=== PATIENT | female | born 1990 | race Caucasian/White ===

== ENCOUNTER 2017-03-05 07:02 | Emergency (ER) | payer OTHER ==
[2017-03-05 07:24] LABS: COLOR PALE YELLOW; LEUKOCYTE ESTERASE,URINE 1+ (NEGATIVE); NITRITE,URINE NEGATIVE (NEGATIVE)
[2017-03-05 07:25] LABS: WBC,URINE 15-25 /hpf (0-3)
[2017-03-05] MEDS ORDERED: CEPHALEXIN 500 MG CAP PO ONE (07:41)
--- NOTE | 2017-03-05 07:45 | EDPHY ---
H & P Time Seen by Provider: 03/05/17 07:04 HPI/ROS: HPI Urinary complaints. 26-year-old female by private vehicle. She complains of some burning with urination and increased frequency with urination, onset this morning. No gross hematuria. Denies any back pain. No nausea or vomiting. No fever. ROS: Constitutional: No fever, no chills. No weakness. Respiratory: No cough. No shortness of breath. Cardiac: No chest pain, no palpitations. Gastrointestinal: No abdominal pain, no vomiting, no diarrhea. Genitourinary: No hematuria. As above. Musculoskeletal: No back pain. No neck pain. No myalgias or arthralgias. Skin: No rashes. Neurological: No headache. No focal weakness or altered sensation. Past medical history: None. Social history: Here by herself. Nonsmoker. Physical Exam: General Appearance: Alert, no distress. This patient is responding to questions appropriately and in full sentences. This patient appears well- hydrated and well-nourished. Eyes: Pupils equal and round no pallor or injection. No lid edema, erythema or injection. Gastrointestinal: Abdomen is soft and nontender, no masses, bowel sounds normal. No focal tenderness at McBurney's point. No Marin sign. Neurological: Motor sensory function is grossly intact. Cranial nerves are normal. Gait is normal. Skin: Warm and dry, no rashes. Musculoskeletal: No CVA tenderness bilaterally. Extremities are symmetrical. All joints range without pain or impingement. Psychiatric: No agitation. No depression. Database: EKG: Imaging: Procedures: Emergency department course: Urinalysis indicates a possible early infection. Plan will be to treat her with a 5 day course of Keflex. She was given 500 mg of Keflex orally in the emergency department. She has no known medication allergies. She is in agreement with this plan. Follow-up and return to emergency department precautions discussed. All of her questions were answered. She was discharged in good condition. Differential Diagnosis: The differential diagnosis on this patient includes but is not limited to urinary tract infection. Pyelonephritis, musculoskeletal back pain, PID, STD unlikely. This represents a partial list of diagnoses considered. These considerations are based on history, physical exam, past history, reassessment and diagnostic testing. Smoking Status: Light smoker Constitutional: Initial Vital Signs Temperature (C) 36.5 C 03/05/17 07:05 Heart Rate 72 03/05/17 07:05 Respiratory Rate 16 03/05/17 07:05 Blood Pressure 146/96 H 03/05/17 07:05 O2 Sat (%) 99 03/05/17 07:05 O2 Delivery Mode Room Air Home Medications: Medication Instructions Recorded Cephalexin [Keflex (*)] 500 mg PO Q6 5 Days 03/05/17 Medical Decision Making - Data Points Laboratory Results: 03/05/17 03/05/17 07:00 07:00 Urine Color PALE YELLOW Urine Appearance CLEAR Urine pH 6.0 (5.0-7.5) Ur Specific [place] 1.006 (1.002-1.030) Urine Protein NEGATIVE (NEGATIVE) Urine Ketones NEGATIVE (NEGATIVE) Urine Blood NEGATIVE (NEGATIVE) Urine Nitrate NEGATIVE (NEGATIVE) Urine Bilirubin NEGATIVE (NEGATIVE) Urine Urobilinogen NEGATIVE EU EU (0.2-1.0) Ur Leukocyte Esterase 1+ H (NEGATIVE) Urine RBC 1-3 /hpf /hpf (0-3) Urine WBC 15-25 /hpf H /hpf (0-3) Ur Epithelial Cells TRACE /lpf /lpf (NONE-1+) Urine Glucose NEGATIVE (NEGATIVE) Urine Test NEGATIVE Departure - Departure Disposition: Home, Routine, Self-Care Clinical Impression: Urinary tract infection Condition: Good Instructions: Urinary Tract Infection in Women (ED) Additional Instructions: Read and follow provided instructions. Follow-up with your primary care physician in 1-2 days for re-evaluation as needed. Take medication as prescribed through entire course of treatment. Return to the emergency department for worsening symptoms, back pain, fever, nausea and vomiting or other serious concerns. Referrals: NONE *PRIMARY CARE P,. [Primary Care Provider] - As per Instructions Prescriptions: Cephalexin [Keflex (*)] 500 mg PO Q6 5 Days
[2017-03-05 08:14] VITALS: BP 136/78; PULSE 81; RESP 18; TEMP 98.1; O2SAT 95
== END 2017-03-05 08:14 | disposition home or self-care (01) ==
DX: N39.0 Urinary tract infection, site not specified (principal); B96.20 Unspecified Escherichia coli [E. coli] as the cause of diseases classified elsewhere; F17.200 Nicotine dependence, unspecified, uncomplicated